=== PATIENT | female | born 1960 | race Caucasian/White ===

== ENCOUNTER 2019-09-12 19:31 | Emergency (ER) | payer OTHER ==
[~2019-09-12] VITALS: Ht 160 cm; Wt 92.5 kg
[2019-09-12 20:07] VITALS: BP 165/87
--- NOTE | 2019-09-12 20:08 | NUR ---
PT AAOX4. BIBFAMILY C/O L EYE REDDNESS AND PAIN X2-3 WEEKS. +BLURRY VISION. AWAITING MD FOR EVAL. NO ACUTE DISTRESS NOTED.
== END 2019-09-12 21:41 | disposition home or self-care (01) ==
LOC: ER 19:34
DX: H11.32 Conjunctival hemorrhage, left eye (principal)
CPT/HCPCS: 70450-TC

== ENCOUNTER 2021-03-05 21:13 | Emergency (ER) | payer MEDICAID, OTHER ==
[~2021-03-05] VITALS: Ht 162.6 cm; Wt 90.7 kg
--- NOTE | 2021-03-05 21:16 | NUR ---
PT BIBDAUGHTER C/O CHRONIC BACK PAIN WITH LEFT LEG NUMBNESS AND PAIN SINCE 1800 TODAY. PER DAUGHTER, PT CAN USUALLY WALK, BUT THE PAIN WAS SO INTENSE THAT SHE CANT WALK TODAY. PT ATTACHED TO MONITOR AND POX. PT GIVEN BLANKET AND CALL LIGHT WITHIN REACH
[2021-03-05] MEDS ORDERED: PRED50TA PO (22:16)
[2021-03-05] MEDS ORDERED: CYCL15CA23 PO (22:16)
[2021-03-05] MEDS: DEXAMETHASONE SOD PHOSPHATE 4 MG/ML VIAL IM ONE (22:20)
[2021-03-05] MEDS: CARISOPRODOL 350 MG TABLET PO ONE (22:20)
[2021-03-05] MEDS ORDERED: DEXAMETHASONE SOD PHOSPHATE 10 MG/ML VIAL ONE (22:20)
[2021-03-05] MEDS: CARISOPRODOL 350 MG TABLET ONE (22:35)
[2021-03-05 22:51] VITALS: BP 165/75
== END 2021-03-05 22:30 | disposition home or self-care (01) ==
LOC: ER 21:13
DX: M54.42 Lumbago with sciatica, left side (principal); G89.29 Other chronic pain; Z79.899 Other long term (current) drug therapy
CPT/HCPCS: 96372; 99283; J1100

== ENCOUNTER 2021-07-15 21:32 | Inpatient (IN) | payer OTHER ==
[~2021-07-15] VITALS: Ht 154.9 cm; Wt 87.3 kg
--- NOTE | 2021-07-15 20:15 | NUR ---
RN REPORT: RECEIVED REPORT FROM PARTS AND SERVICE MANAGER TIFFANIE CONRAD RN WITH [facility] . PATIENT PRESENTED TO HOSPITAL WITH DAUGHTER (ISABEL) C/O SOB AND CHEST PAIN THAT'S PERSISTED SINCE LAST WEDNESDAY AND HAS PROGRESSED TO RADIATING THROUGH THE NECK AND SHOULDERS. PATIENT WAS RECENTLY D/C'D FROM [facility] AFTER 2 WEEKS HOSPITALIZATION R/T BLE PAIN AND EDEMA AND WAS PLACED ON DIURETICS. PRESENTATION CURRENT PRESENTATION AT ER: ALERT AND ORIENTED X4; NEPALI SPEAKING PREDOMINANTLY, BUT UNDERSTANDS AND CAN SPEAK SOME [place]. DAUGHTER WITH PATIENT. PATIENT IS FULL CODE AND REFUSES ANY VACCINATIONS (FLU/PNA/COVID). ON 2L O2 VIA N/C FOR COMFORT SPO2 WNL TO RA. TELEMETRY READING SINUS EYAL AND SINUS RHYTHM. ABLE TO AMBULATE TOUCHING ASSIST. VOIDS TO BSC. NO SKIN ISSUES PRESENT. CARDIAC DIET. L HAND SL #20. CXR NEGATIVE FOR PULMONARY EDEMA/ CARDIAC ISSUES. PLAN IS FOR PATIENT TO TRANSFER TO [facility] FOR CARDIAC CATHETERIZATION PER DR. YIN. EXPLAINED PROCEDURE TO PATIENT AND FAMILY. FAMILY AWARE OF RATIONALE FOR PROCEDURE, BENEFITS, RISKS, ASE AND PRE-PROCEDURE PREPARATION. PATIENT TO BE NPO AFTER MIDNIGHT. PROCEDURE SLATED FOR 1300 12/8. TROPONIN LEVELS: 13.712, 14.855; LAST TROPONIN @ 1500 8.958. PATIENT ALLERGIC TO MORPHINE. RELEVANT HX FOLLOWS: HTN, OBESITY, HYPERLIPIDEMIA, CAD, BLE EDEMA.
[~2021-07-15 21:32] MED LIST: CYCL15CA23 PO; PRED50TA PO
--- NOTE | 2021-07-15 21:45 | NUR ---
TELEMTRY GLASS FURNACE OPERATOR NOTES: PATIENT ARRIVED TO UNIT ESCORTED BY EMT (X2) TRANSPORT VIA [facility]. PATIENT'S DAUGHTER ISABEL ALSO WITH PATIENT. PATIENT A&O X4 COMMUNICATIVE, COOPERATIVE AND CALM. PATIENT 1 PERSON ASSIST UP FROM GURNEY TO BED. PATIENT ORIENTED TO ROOM, CALL LIGHT, NURSING AND ANCILLARY STAFF. VS TAKEN AND PATIENT IN NAD AT THIS TIME. PATIENT AND DAUGHTER CONFIRMS MD EXPLAINED THE CARDIAC CATHETERIZATION PROCEDURE AND DENY HAVING ANY QUESTIONS. CONSENTS FOR PROCEDURE, ANESTHESIA, BLOOD TRANSFUSION EXPLAINED, READ OVER WITH DAUGHTER. BOTH DAUGHTER AND PATIENT VERBALIZE UNDERSTANDING AND CONSENTS SIGNED BY PATIENT. VSS. PATIENT IN NAD. NO CHANGE FROM PREVIOUS NOTATION (REPORT). TELEMETRY READING SR.
[2021-07-15 22:00] VITALS: BP 135/69
[2021-07-15] MEDS ORDERED: ONDANSETRON HCL/PF 4 MG/2 ML VIAL IVP PRN (22:30)
[2021-07-15] MEDS ORDERED: ZOLPIDEM TARTRATE 5 MG TABLET PO PRN (22:30)
[2021-07-15] MEDS ORDERED: Z GUARD REMEDY 2 OZ OINT TP PRN (22:30)
[2021-07-15] MEDS ORDERED: MAG HYDROX/AL HYDROX/SIMETH 30 ML UDC PO PRN (22:30)
[2021-07-15] MEDS ORDERED: MAGNESIUM HYDROXIDE 30 ML UDC PO PRN (22:30)
--- NOTE | 2021-07-15 22:30 | NUR ---
director of testing notes Snack is given to Pt before midnight.
[2021-07-15] MEDS: IV NS 0.9% 1,000 ML IV PRN (22:33)
[2021-07-15] MEDS: ACETAMINOPHEN 325 MG TABLET PO PRN (22:44)
--- NOTE | 2021-07-15 22:44 | NUR ---
fruit harvester machine operator notes Pt's complaining of headache and requesting meds. Administered tylenol 325mg/ 2tabs/po as ordered for headache. safety precautions is maintained. Will continue to monitor.
[2021-07-15 22:49] VITALS: BP 135/69
--- NOTE | 2021-07-15 23:00 | NUR ---
clinical training coordinator notes Received a phone call from lab for troponin [phone]. MD is informed and aware, Pt received lovenox at [facility] and informed MD that Pt's going for yard laborer tomorrow. No new orders received. Will continue to monitor.
[2021-07-16] VITALS (11 sets, daily range): BP systolic 120–141; BP diastolic 56–87
--- NOTE | 2021-07-16 06:11 | NUR ---
TRANSPORTER DRIVER CLOSING NOTES: PATIENT LYING IN BED, EYES CLOTHES. RESPIRATORY RATE EVEN AND UNLABORED. EASILY AROUSED TO LIGHT TOUCH. NAD AND VSS. TELE READING SR. IV INFUSING WITHOUT COMPLICATION. NO S/SX OF COMPROMISED TISSUE TO OR SURROUNDING IV INSERTION SITE. PATIENT SCHEDULED FOR CARDIAC CATHETERIZATION AT [address] YIN. CONSENTS FOR PROCEDURE, ANESTHESIA BLOOD TRANSFUSION SIGNED.
[2021-07-16 06:21] LABS: BASOPHILS % (AUTO) 0.2 % (0.0-2.0); EOSINOPHILS % (AUTO) 1.1 % (0.0-6.0); HEMATOCRIT 39 % (33-45); LYMPHOCYTES % (AUTO) 34.2 % (20.0-44.0); MEAN CORPUSCULAR HGB CONC 34 g/dl (31.0-36.0); MEAN CORPUSCULAR VOLUME 91 fL (82-100); MONOCYTES # (AUTO) 0.9 K/uL (0.1-1.30); MONOCYTES % (AUTO) 9.7 % (2.0-12.0); NEUTROPHILS # (AUTO) 4.8 K/uL (1.8-8.9); NEUTROPHILS % (AUTO) 54.8 % (43.0-81.0); PLATELET COUNT (AUTO) 220 K/uL (150-450); RED BLOOD CELL COUNT(AUTO) 4.26 MIL/uL (4.0-5.2); WHITE BLOOD COUNT (AUTO) 8.8 K/uL (4.3-11.0)
[2021-07-16 06:54] LABS: ALBUMIN 3.1 g/dL (3.4-5.0); BILIRUBIN,DIRECT 0.1 mg/dL (0.0-0.2); BILIRUBIN,TOTAL 0.5 mg/dL (0.2-1.0); CALCIUM, SERUM 8.4 mg/dL (8.5-10.1); CREATININE 0.6 mg/dL (0.6-1.3); MAGNESIUM 2.1 mg/dL (1.8-2.4); POTASSIUM 3.9 mmol/L (3.5-5.1); TOTAL PROTEIN, SERUM 6.9 g/dL (6.4-8.2)
--- NOTE | 2021-07-16 07:30 | NUR ---
YARN WORKER OPENING NOTES: PATIENT SLEEPING IN BED. A/OX4 ENGLISH SPEAKING. PATIENT STABLE ON ROOM AIR, RESPIRATORY RATE EVEN AND UNLABORED. PATIENT WITH EXTERNAL ROTARY DRILLER PROSPECTING, TELE READING SR.@67, NO CARDIAC DISTRESS NOTED. IV ACCESS AT LEFT HAND # 22 G, RUNNING NS@ 75ML/HR, INTACT AND PATENT.SAFETY MEASURES PROVIDED; LOW BED, BED LOCKED, BED ALARM ON, SIDE RAILS X2 AND CALL LIGHT WITHIN REACH. WILL CONTINUE TO PLAN OF CARE.
--- NOTE | 2021-07-16 08:30 | NUR ---
RN NOTE RECEIVED CALL FROM LOGGING ENGINEER [facility] REGARDING CRITICAL HIGH TROPONIN LEVEL 4.94 FROM 5.78. MD MADE AWARE. PT FOR CARDIAC CATHETERIZATION TODAY. PT WITH NO C/O CARDIAC DISTRESS AT THIS TIME. WILL CONTINUE TO MONITOR.
[2021-07-16] MEDS: ASPIRIN 81 MG TAB.CHEW PO SCH (08:32)
[2021-07-16] MEDS: IV NS 0.9% 1,000 ML IV PRN (12:44)
[2021-07-16] MEDS ORDERED: IODIXANOL 150 ML IV ONE (12:45)
[2021-07-16] MEDS ORDERED: LIDOCAINE HCL/MPF 1% 30 ML VIAL IJ ONE (12:45)
--- NOTE | 2021-07-16 12:45 | NUR ---
INSERTED NEW IV ACCESS AT LFA #20, BLOOD RETURNED AND FLUSHED WELL. NO SIGNS OF SWELLING, SKIN COLOR CHANGE NOTED AT THIS TIME. PATIENT TOLERATED WELL.
[2021-07-16] MEDS ORDERED: FENO134C PO (12:46)
[2021-07-16] MEDS ORDERED: LOSA100T31 PO (12:46)
[2021-07-16] MEDS ORDERED: OMEP20CA15 PO (12:46)
[2021-07-16] MEDS ORDERED: HYDR25TA4 PO (12:46)
[2021-07-16] MEDS ORDERED: NITROGLYCERIN IN 5 % DEXTROSE 250 ML IV ONE (12:46)
[2021-07-16] MEDS ORDERED: ESCI10TA PO (12:46)
[2021-07-16] MEDS ORDERED: METO-358 PO (12:46)
[2021-07-16] MEDS ORDERED: SERT50TA12 PO (12:46)
[2021-07-16] MEDS ORDERED: GABA-536 PO (12:46)
[2021-07-16] MEDS ORDERED: DICL50TA9 PO (12:46)
[2021-07-16] MEDS ORDERED: HYDR-4077 PO (12:46)
[2021-07-16] MEDS ORDERED: ERGO500093 PO (12:46)
--- NOTE | 2021-07-16 13:10 | NUR ---
RN NOTES PT PICKED-UP VIA HER BED TO CARDIAC LAB FOR CARDIAC CATHETERIZATION.
[2021-07-16] MEDS ORDERED: FENTANYL PF 100MCG/2ML AMPUL ONE (13:23)
[2021-07-16] MEDS ORDERED: MIDAZOLAM HCL 2 MG/2ML VIAL ONE (13:23)
[2021-07-16] MEDS ORDERED: IODIXANOL 320MG/ML 50 ML IV ONE (13:49)
[2021-07-16] MEDS ORDERED: HEPARIN SODIUM, PORCINE 1,000 UNIT/ML VIAL ONE (13:51)
[2021-07-16] MEDS ORDERED: HEPARIN SODIUM, PORCINE 5000 UNITS/1 ML VIAL ONE (13:51)
[2021-07-16] MEDS ORDERED: CLOPIDOGREL BISULFATE 300 MG TABLET ONE (14:08)
--- NOTE | 2021-07-16 14:35 | NUR ---
TRANSFER NOTE PT BROUGHT IN BY OR TEAM ON HOSPITAL BED, PT IS A&OX4, BREATHING EVEN AND UNLABORED ON RA. PT CURRENTLY ENDORSES NO PAIN. R RADIAL DRESSING IS CLEAN, NO BLOOD OBSERVED. R INGUINAL DRESSING IS CLEAN, NO BLOOD OBSERVED. PT KEPT SUPINE PER MD ORDER. PT PLACED ON MONITOR, ORDERS EXECUTED. RN WILL MONITOR AND TREAT THROUGHOUT SHIFT.
[2021-07-16] MEDS: METOPROLOL TARTRATE 25 MG TABLET PO SCH ×2 (15:00→21:38)
--- NOTE | 2021-07-16 15:00 | NUR ---
NURSES NOTE LOPRESSOR HELD, PT BP IS 127/67, HR 66, PT NEEDS TO REMAIN SUPINE AND UNSAFE TO RAISE HEAD OF BED TO TAKE PO RX
--- NOTE | 2021-07-16 16:25 | NUR ---
RN NOTE R INGINUAL AND R RADIAL DRESSING IS CLEAN AND NO BLOOD OBSERVED
--- NOTE | 2021-07-16 16:50 | NUR ---
MD COMMUNICATION RN SPOKE TO MD ABOUT DIET, MD GAVE ORDERS: REGULAR DIET. RN READ BACK ORDER TO CONFIRM AND WILL ENTER DIRECTED.
[2021-07-16] MEDS: ACETAMINOPHEN 325 MG TABLET PO PRN (18:30)
--- NOTE | 2021-07-16 19:17 | NUR ---
RN NOTES PT FOUND SEMI POWELL'S POSITION, HOB 30 DEGREES PER MD ORDER, NO S/S OF DISTRESS, PT ENDORSES NO PAIN AND BREATHING IS EVEN AND UNLABORED ON RA. DRESSING CONTINUE TO BE CLEAN AND FREE OF BLOOD. SBAR AND REPORT GIVEN TO CAR PAINTER RN. ALL QUESTIONS ANSWERED. SAFETY MEASURES IN PLACE, BED LOCKED AND IN LOWEST POSITION, SIDE RAILS UPX2, CALL LIGHT WITHIN REACH, PT INSTRUCTED TO CALL FOR ASSISTANCE. PT ENDORSED IN STABLE CONDITION FOR FLORECITA.
--- NOTE | 2021-07-16 20:00 | NUR ---
RN OPENING NOTES: RECEIVED PATIENT IN BED. A/OX4 URDU SPEAKING S/P RIGHT COMMMON FEMORAL ARTERY BALLOON ANGIOPLASTY NO BLEEDING NOTED ON THE SITE . PATIENT STABLE ON ROOM AIR, RESPIRATORY RATE EVEN AND UNLABORED. PATIENT ON TELE RADIOGRAPHER ANGIOGRAM, TELE READING SR.@79, NO CARDIAC DISTRESS NOTED. IV ACCESS AT LEFT HAND # 22 G, RUNNING NS@ 75ML/HR, INTACT AND PATENT.SAFETY MEASURES PROVIDED; LOW BED, BED LOCKED, BED ALARM ON, SIDE RAILS X2 AND CALL LIGHT WITHIN REACH. WILL CONTINUE TO PLAN OF CARE.FAMILY AT BEDSIDE UPDATED WITH PTS CURRENT CONDITION ,WILL CONTINUE TO MONITOR PTS,V/S STABLE AFEBRILE.
[2021-07-16] MEDS ORDERED: ATORVASTATIN 40 MG TABLET PO SCH (22:00)
--- NOTE | 2021-07-16 22:00 | NUR ---
ALL DUE MEDS GIVEN AT THIS TIME WITH NO ASE NOTED ,PTS IN COMFORTABLE POSITION NO SOB NO DISTRESS NOTED.NO C/O PAIN NOTED. WILL CONTINUE TO MONITOR PTS
[2021-07-17] VITALS (13 sets, daily range): BP systolic 101–129; BP diastolic 47–76
[2021-07-17 04:56] LABS: BASOPHILS % (AUTO) 0.2 % (0.0-2.0); EOSINOPHILS % (AUTO) 0.8 % (0.0-6.0); HEMATOCRIT 37 % (33-45); HEMOGLOBIN 12.5 g/dL (11.5-14.8); LYMPHOCYTES # (AUTO) 2.1 K/uL (0.8-4.8); MEAN CORPUSCULAR HGB CONC 34 g/dl (31.0-36.0); MEAN CORPUSCULAR VOLUME 91 fL (82-100); MONOCYTES # (AUTO) 0.8 K/uL (0.1-1.30); MONOCYTES % (AUTO) 8.3 % (2.0-12.0); NEUTROPHILS # (AUTO) 6.1 K/uL (1.8-8.9); NEUTROPHILS % (AUTO) 67.7 % (43.0-81.0); PLATELET COUNT (AUTO) 243 K/uL (150-450); RED BLOOD CELL COUNT(AUTO) 4.06 MIL/uL (4.0-5.2); WHITE BLOOD COUNT (AUTO) 9.1 K/uL (4.3-11.0)
[2021-07-17 05:19] LABS: BILIRUBIN,TOTAL 0.6 mg/dL (0.2-1.0); CALCIUM, SERUM 8.2 mg/dL (8.5-10.1); CREATININE 0.6 mg/dL (0.6-1.3); PHOSPHORUS 3.6 mg/dL (2.5-4.9); POTASSIUM 3.9 mmol/L (3.5-5.1); TOTAL PROTEIN, SERUM 6.9 g/dL (6.4-8.2)
--- NOTE | 2021-07-17 06:58 | NUR ---
staff nurse icu resource team note Reident remain in bed a/0x4 no sob no distress noted no c/o of pain .. right femoral site noted with no bleeding all needs attended too call light within reach, v/s stable afebrile , will endorse to rn day shift for continuity of care . possible d/c home today.ivfluids completed pts able to drink fluids well.
[2021-07-17] MEDS: ASPIRIN 81 MG TAB.CHEW PO SCH (08:57)
[2021-07-17] MEDS: METOPROLOL TARTRATE 25 MG TABLET PO SCH (08:57)
[2021-07-17] MEDS ORDERED: CLOPIDOGREL BISULFATE 75 MG TABLET PO SCH (09:00)
--- NOTE | 2021-07-17 12:00 | NUR ---
RN NOTE PT DISCHARGED FROM ICU TO HOME. PRESCRIPTION SENT AND EXPLAINED TO PT. EXIT CARE SIGNED. PT D/C WITH WHEELCHAIR. IV'S REMOVED.
== END 2021-07-17 12:45 | disposition home or self-care (01) | DRG 174 ==
LOC: TELE 21:32 → ICU 07-16 14:41
PROVIDERS: ADMIT Nurse Practitioner Acute Care
PROC: 02C03ZZ Extirpation of Matter from Coronary Artery, One Artery, Percutaneous Approach (ICD-10-PCS; principal; 2021-07-16)
PROC: 02703ZZ Dilation of Coronary Artery, One Artery, Percutaneous Approach (ICD-10-PCS; 2021-07-16)
PROC: 4A023N7 Measurement of Cardiac Sampling and Pressure, Left Heart, Percutaneous Approach (ICD-10-PCS; 2021-07-16)
PROC: B211YZZ Fluoroscopy of Multiple Coronary Arteries using Other Contrast (ICD-10-PCS; 2021-07-16)
DX: I21.4 Non-ST elevation (NSTEMI) myocardial infarction (principal); E66.9 Obesity, unspecified; I25.10 Atherosclerotic heart disease of native coronary artery without angina pectoris; E78.5 Hyperlipidemia, unspecified; F32.A Depression, unspecified; I10 Essential (primary) hypertension; I25.2 Old myocardial infarction; M19.90 Unspecified osteoarthritis, unspecified site; Z68.36 Body mass index [BMI] 36.0-36.9, adult
CPT/HCPCS: 36415; 80048-TC; 80053-TC; 80076-TC; 83735-TC; 84100-TC; 84484-TC; 85025-TC; 85347; 85610-TC; 85730-TC; 86850-TC; 87081-TC; 92973-TC; C1725; C1757; C1769; C1887; C1894; G0378; G0500; J1644; J2250; J3010; J3490; J7030; Q9967

== ENCOUNTER 2021-08-22 20:18 | Emergency (ER) | payer OTHER ==
[~2021-08-22] VITALS: Ht 162.6 cm; Wt 83.9 kg
[~2021-08-22 20:18] MED LIST changes: +DICL50TA9 PO; +ERGO500093 PO; +ESCI10TA PO; +FENO134C PO; +GABA-536 PO; +LOSA100T31 PO; +OMEP20CA15 PO; -PRED50TA PO; +SERT50TA12 PO
--- NOTE | 2021-08-22 21:10 | NUR ---
PT BIBDAUGHTER C/O LEFT EYE ITCHINESS, SWELLING AND YELLOW [id number]. PATIENT ALERT AND ORIENTED X3. AMBULATORY WITH NON LABORED BREATHING. PATIENT VISUAL ACUITY WAS DONE . PLACED IN BED 10 NO C/O AT THIS TIME
[2021-08-22] MEDS ORDERED: SULF15DR6 LEFTEYE (22:25)
[2021-08-22 22:36] VITALS: BP 177/104
--- NOTE | 2021-08-22 22:36 | NUR ---
DISCHARGE INSTRUCTIONS GIVEN TO PT. PT LEFT IN STABLE CONDITION
== END 2021-08-22 22:37 | disposition home or self-care (01) ==
LOC: ER 20:20
DX: H00.016 Hordeolum externum left eye, unspecified eyelid (principal); I10 Essential (primary) hypertension; Z88.6 Allergy status to analgesic agent; Z79.899 Other long term (current) drug therapy

== ENCOUNTER 2021-10-03 19:55 | Inpatient (IN) | payer MEDICAID, OTHER ==
[~2021-10-03] VITALS: Ht 157.5 cm; Wt 90.3 kg
[~2021-10-03 19:55] MED LIST changes: +SULF15DR6 LEFTEYE
--- NOTE | 2021-10-03 20:05 | NUR ---
TO ER BED 2. BIBDAUGHTER C/O MID STERNAL CHEST PAIN RADIATING TO NECK X 2 DAYS WORST TODAY. HAS HX OF FL. DENIES NAUSEA AND VOMITING. PT CHANGED INTO GOWN AND CONNECTED TO MONITOR. NOT IN RESPIRATORY DISTRESS. AWAITING MD ELKINS
--- NOTE | 2021-10-03 20:20 | NUR ---
RICKSHAW DRIVER AT PT'S BEDSIDE
--- NOTE | 2021-10-03 20:26 | NUR ---
STORE LEADER AT PT'S BEDSIDE
--- NOTE | 2021-10-03 20:27 | NUR ---
IV LINE ESTABLISHED. LFA 20G
--- NOTE | 2021-10-03 20:30 | NUR ---
COVID ANTIGEN SWAB COLLECTED AND SENT TO LAB
[2021-10-03 20:38] LABS: BASOPHILS % (AUTO) 0.3 % (0.0-2.0); EOSINOPHILS % (AUTO) 1.5 % (0.0-6.0); HEMATOCRIT 39 % (33-45); HEMOGLOBIN 13.2 g/dL (11.5-14.8); LYMPHOCYTES # (AUTO) 2.4 K/uL (0.8-4.8); LYMPHOCYTES % (AUTO) 27.5 % (20.0-44.0); MEAN CORPUSCULAR HGB CONC 34 g/dl (31.0-36.0); MEAN CORPUSCULAR VOLUME 89 fL (82-100); MONOCYTES # (AUTO) 0.6 K/uL (0.1-1.30); MONOCYTES % (AUTO) 6.5 % (2.0-12.0); NEUTROPHILS # (AUTO) 5.6 K/uL (1.8-8.9); NEUTROPHILS % (AUTO) 64.2 % (43.0-81.0); PLATELET COUNT (AUTO) 246 K/uL (150-450); WHITE BLOOD COUNT (AUTO) 8.7 K/uL (4.3-11.0)
[2021-10-03 20:49] LABS: CALCIUM, SERUM 8.8 mg/dL (8.5-10.1); CARBON DIOXIDE 28 mmol/L (21-32); CHLORIDE 103 mmol/L (98-107); CREATININE 0.7 mg/dL (0.6-1.3); GLUCOSE 117 mg/dL (74-106); POTASSIUM 3.9 mmol/L (3.5-5.1); SODIUM SERUM 137 mmol/L (136-145); UREA NITROGEN, BLOOD 25 mg/dL (7-18)
[2021-10-03 20:54] LABS: ALANINE AMINOTRANSFERASE 22 U/L (12-78); ALBUMIN 3.7 g/dL (3.4-5.0); ALKALINE PHOSPHATASE 120 U/L (46-116); ASPARTATE AMINOTRANSFERASE 17 U/L (15-37); BILIRUBIN,DIRECT 0.1 mg/dL (0.0-0.2); BILIRUBIN,TOTAL 0.2 mg/dL (0.2-1.0); TOTAL PROTEIN, SERUM 7.3 g/dL (6.4-8.2)
[2021-10-03] MEDS ORDERED: NITROGLYCERIN PACKET 1 GM PACKET ONE (21:20)
--- NOTE | 2021-10-03 21:20 | NUR ---
KARISSA MULLEN, DNP AT BEDSIDE
[2021-10-03] MEDS ORDERED: ASPIRIN 325 MG TABLET ONE (21:21)
[2021-10-03] MEDS ORDERED: ASPIRIN 325 MG TABLET PO ONE (21:30)
[2021-10-03] MEDS ORDERED: NITROGLYCERIN PACKET 1 GM PACKET TD ONE (21:30)
[2021-10-03] MEDS ORDERED: ALPRAZOLAM 0.5 MG TABLET PO PRN (22:00)
[2021-10-03] MEDS ORDERED: MAGNESIUM HYDROXIDE 30 ML UDC PO PRN (22:00)
[2021-10-03] MEDS ORDERED: Z GUARD REMEDY 4 OZ OINT TP PRN (22:00)
[2021-10-03] MEDS ORDERED: ONDANSETRON HCL/PF 4 MG/2 ML VIAL IVP PRN (22:00)
[2021-10-03] MEDS ORDERED: MAG HYDROX/AL HYDROX/SIMETH 30 ML UDC PO PRN (22:00)
[2021-10-03] MEDS ORDERED: NITROGLYCERIN 0.4 MG/TAB BOTTLE SL PRN (22:00)
--- NOTE | 2021-10-03 22:17 | NUR ---
REPORT GIVEN TO SHARRON AGUIAR FOR FLORECITA
--- NOTE | 2021-10-03 23:09 | NUR ---
PT TRANSFERRED TO 3W VIA ACLS PROTOCOL. ALL BELONGINGS WITH PT. PT TOLERATED TRANSFER WELL.
--- NOTE | 2021-10-03 23:30 | NUR ---
ADMITTED PATIENT FROM ED DUE TO CHEST PAIN RADIATING TO NECK X3 DAYS. FROM HOME, ALERT/ORIENTED X4, STABLE ON ROOM AIR, AFEBRILE, COVID (-), NO COMPLAIN OF CHEST PAIN ON ADMISSION IN UNIT. BP ELEVATED IN ED WITH SBP OF 200S, WAS GIVEN NITRO PATCH, BP IMPROVED WITH SBP OF 129. COMPLAINING OF BACK PAIN, ASSISTED TO TOILET, UNSTEADY GAIT, CONTINENT OF BOWEL AND BLADDER, FOR CARDIAC CONSULT WITH DR. RICKETTS
[2021-10-03 23:38] VITALS: BP 129/70
[2021-10-03] MEDS: ENOXAPARIN SODIUM 40 MG/0.4 ML DISP.SYRIN SQ SCH (23:41)
[2021-10-03] MEDS: METOPROLOL TARTRATE 25 MG TABLET PO SCH (23:41)
[2021-10-03] MEDS: ACETAMINOPHEN 325 MG TABLET PO PRN (23:41)
[2021-10-04 06:52] LABS: BASOPHILS % (AUTO) 0.3 % (0.0-2.0); EOSINOPHILS % (AUTO) 2.8 % (0.0-6.0); HEMATOCRIT 37 % (33-45); HEMOGLOBIN 12.6 g/dL (11.5-14.8); LYMPHOCYTES # (AUTO) 2.9 K/uL (0.8-4.8); LYMPHOCYTES % (AUTO) 44.6 % (20.0-44.0); MEAN CORPUSCULAR HGB CONC 34 g/dl (31.0-36.0); MEAN CORPUSCULAR VOLUME 89 fL (82-100); MONOCYTES # (AUTO) 0.4 K/uL (0.1-1.30); NEUTROPHILS % (AUTO) 46.3 % (43.0-81.0); PLATELET COUNT (AUTO) 241 K/uL (150-450); WHITE BLOOD COUNT (AUTO) 6.5 K/uL (4.3-11.0)
--- NOTE | 2021-10-04 07:05 | NUR ---
ALERT AND ORIENTED X4, STABLE ON ROOM AIR, NO COMPLAIN OF CHEST PAIN, SINUS EYAL WHEN ASLEEP, HR IN MID 50S, CHRONIC BACK PAIN, ALLERGY TO MORPHINE, GIVEN TYLENOL, ASSISTED TO TOILET, SKIN INTACT, BP STABLE, AFEBRILE. CXR NEGATIVE, CT HEAD NO HEMORRHAGE, NO INFARCT, CHRONIC MAXILLARY SINUSITIS, CARDIAC CONSULT WITH DR. RICKETTS, SERIAL TROPONIN AND R/O REOCCLUSION OF SMALL VESSEL, HX OF THROMBECTOMY 07/2021
[2021-10-04 07:14] LABS: CREATININE 0.5 mg/dL (0.6-1.3); PHOSPHORUS 4.4 mg/dL (2.5-4.9); POTASSIUM 3.6 mmol/L (3.5-5.1)
[2021-10-04] MEDS ORDERED: CLOP75TA15 PO (07:27)
[2021-10-04] MEDS ORDERED: ATOR40TA PO (07:27)
[2021-10-04] MEDS ORDERED: ASPI-1420 PO (07:27)
--- NOTE | 2021-10-04 07:30 | NUR ---
RN OPENING NOTES PATIENT AWAKE IN BED RESTING, A/O X4. NO S/S OF PAIN NOTED AT THIS TIME. PATIENT ON ROOM AIR, NO DISTRESS OR SHORTNESS OF BREATH. IV ACCESS LAC #20G INTACT, PATENT AND FLUSHING WELL. PATIENT HAS AN EXTERNAL PSYCH THERAPIST CURRENT READING OF S.B. AND HR OF 51. FALL AND SAFETY MEASURES IN PLACE, BED ALARM ON, BED IN LOW AND LOCK POSITION, CALL LIGHT AND TABLE WITHIN EASY REACH, SIDE RAILS UP X2. WILL CONTINUE TO MONITOR.
[2021-10-04 08:00] VITALS: BP 126/72
[2021-10-04] MEDS: LOSARTAN POTASSIUM 25 MG TABLET PO SCH (08:20)
[2021-10-04] MEDS: PANTOPRAZOLE 40 MG TABLET.DR PO SCH (08:21)
[2021-10-04] MEDS: ASPIRIN EC 81 MG TABLET.DR PO SCH (08:21)
[2021-10-04] MEDS: CLOPIDOGREL BISULFATE 75 MG TABLET PO SCH (08:21)
[2021-10-04] MEDS: METOPROLOL TARTRATE 25 MG TABLET PO SCH ×2 (08:21→20:44)
[2021-10-04 12:00] VITALS: BP 161/72
[2021-10-04 12:51] LABS: THYROID STIMULATING HORMONE 4.618 uIU/mL (0.358-3.74)
[2021-10-04] MEDS: ACETAMINOPHEN 325 MG TABLET PO PRN ×2 (13:13→20:46)
[2021-10-04] MEDS ORDERED: CT SWABBABLE VALVE TRANS SET 1 EA INFUS.SET MC ONE (13:23)
[2021-10-04] MEDS ORDERED: IV NS 0.9% 250 ML IV ONE (13:23)
[2021-10-04] MEDS ORDERED: IOHEXOL-350 100 ML VIAL IV ONE (13:23)
[2021-10-04] MEDS ORDERED: METOPROLOL TARTRATE INJ 5 MG/5 ML AMPUL ONE (13:46)
--- NOTE | 2021-10-04 13:57 | NUR ---
RN NOTES PT RECEIVED IN RADIOLOGY FOR CTA, A/Ox4, KATELYN ANY DISTRESS , CONTINUE TO MONITOR VSS DURING CTA .
--- NOTE | 2021-10-04 13:58 | NUR ---
RN NOTES PT IS A/Ox4, 5 MG OF METOPROLOL IV GIVEN DURING CTA, PT TOLERATED WELL, NO DISTRESS NOTED , VSS STABLE.
--- NOTE | 2021-10-04 14:04 | NUR ---
RN NOTES VSS STABLE , PT GOING BACK TO THE FLOOR FROM RADIOLOGY IN STABLE CONDITION, PT DENIED ANY DISTRESS.
[2021-10-04 16:00] VITALS: BP_SYST 123; BP_SYST 126; BP_DIAS 56; BP_DIAS 67
--- NOTE | 2021-10-04 18:41 | NUR ---
RN CLOSING NOTES PATIENT AWAKE IN BED RESTING, A/O X4. NO S/S OF PAIN NOTED AT THIS TIME. PATIENT ON ROOM AIR, NO DISTRESS OR SHORTNESS OF BREATH. IV ACCESS LAC #20G AND L HAND #20G INTACT, PATENT AND FLUSHING WELL. PATIENT HAS AN EXTERNAL LAWYER CRIMINAL CURRENT READING OF S.B. AND HR OF 60. FALL AND SAFETY MEASURES IN PLACE, BED ALARM ON, BED IN LOW AND LOCK POSITION, CALL LIGHT AND TABLE WITHIN EASY REACH, SIDE RAILS UP X2. WILL ENDORSE TO DATA EXAMINATION CLERK.
--- NOTE | 2021-10-04 19:10 | NUR ---
RN NOTES: RECEIEVED AWAKE ON BED, DAUGHTER PRESENT AT BED SIDE, ON DRAY DRIVER TELE-SB RATE-56, SHE UNDERGONE ct ANGIO THIS MORNING, A/OX4, ORIENTED TO UNIT AND STAFF, ASSISTED TO THE BATHROOM AFTER ENDORSEMENT, AMBULATE WELL, SHE WAS ABLE TO PEE WITHOUT ANY PAIN OR DISCOMFORT, LH-G#22 INTACT, STILL AWAITING FOR RESULT OF ECHO AND CT ANGIO. -INSTRUCT AND ENCOURAGE TO DRINK FLUIDS TOLERATED FOR ELECTROLYTES REPLACEMENT, ABLE TO FOLLOW INSTRUCTION AND COMPREHEND WELL.
--- NOTE | 2021-10-04 19:54 | NUR ---
RN NOTES: -CALLS AND NEEDS ATTENDED, ASSISTED TO BATHROOM.
[2021-10-04 20:00] VITALS: BP 126/69
[2021-10-04] MEDS: ENOXAPARIN SODIUM 40 MG/0.4 ML DISP.SYRIN SQ SCH (20:45)
--- NOTE | 2021-10-04 20:46 | NUR ---
RN NOTES: PATIENT REFUSED TO TAKE HER BETA MYLA, HER HR IS ONLY 54, SHE REQUEST FOR TYLENOL SHE HAS MILD HEADACHE, GIVEN, NON PHARMACOLOGIC INTERVENTION RENDERED, DIM LIT AND WARM BLANKET GIVEN.
[2021-10-05] VITALS: BP 131/59
[2021-10-05 04:00] VITALS: BP 131/70
--- NOTE | 2021-10-05 07:17 | NUR ---
RN NOTES: ASLEEP IN THE NIGHT, NO CHEST PAIN, SINUS BRADYCARDIA=54, KEPT MONITORED, CALLS AND NEEDS ATTENDED, NO LABS FOR TODAYS, ENDORSED FOR CONTINUITY OF CARE.
--- NOTE | 2021-10-05 07:29 | NUR ---
RN OPENING NOTES PATIENT AWAKE IN BED RESTING, A/O X4. NO S/S OF PAIN NOTED AT THIS TIME. PATIENT ON ROOM AIR, NO DISTRESS OR SHORTNESS OF BREATH. IV ACCESS L HAND #20G INTACT, PATENT AND FLUSHING WELL. PATIENT HAS AN EXTERNAL VENDING MACHINE HOST/HOSTESS CURRENT READING OF S.B. AND HR OF 56. FALL AND SAFETY MEASURES IN PLACE, BED ALARM ON, BED IN LOW AND LOCK POSITION, CALL LIGHT AND TABLE WITHIN EASY REACH, SIDE RAILS UP X2. WILL CONTINUE TO MONITOR.
[2021-10-05] MEDS: ASPIRIN EC 81 MG TABLET.DR PO SCH (08:29)
[2021-10-05] MEDS: PANTOPRAZOLE 40 MG TABLET.DR PO SCH (08:30)
[2021-10-05] MEDS: CLOPIDOGREL BISULFATE 75 MG TABLET PO SCH (08:30)
[2021-10-05 08:39] VITALS: BP 116/68
[2021-10-05] MEDS ORDERED: METO25TA20 PO (08:42)
[2021-10-05] MEDS: LOSARTAN POTASSIUM 25 MG TABLET PO SCH (09:47)
[2021-10-05] MEDS: METOPROLOL TARTRATE 25 MG TABLET PO SCH (09:47)
[2021-10-05 12:31] VITALS: BP 124/58
--- NOTE | 2021-10-05 14:38 | NUR ---
CENTRAL OFFICE OPERATOR NOTE PATIENT DISCHARGE IN STABLE MEDICAL CONDITION. A/O X4. V/S TAKEN, STABLE AND RECORDED. NO IV ACCESS. SKIN ASSESSMENT DONE, SKIN INTACT. NAME ARM BAND REMOVED. ALL BELONGINGS CHECKED AND SIGNED. HEALTH TEACHING AND DISCHARGE INSTRUCTIONS GIVEN TO PATIENT AND VERBALIZED UNDERSTANDING. PATIENT LEFT UNIT VIA WHEELCHAIR WITH NO SIGNS OF DISTRESS, ACCOMPANIED BY FITNESS FLOOR ATTENDANT TO THE LOBBY. PATIENT LEFT HOSPITAL WITH FAMILY. CHARGE NURSE AWARE OF DISCHARGED.
== END 2021-10-05 14:30 | disposition home or self-care (01) | DRG 243 ==
LOC: ER 19:56 → TELE 22:10
PROVIDERS: ADMIT Nurse Practitioner Acute Care; ATTEND Internal Medicine
DX: K21.9 Gastro-esophageal reflux disease without esophagitis (principal); G90.8 Other disorders of autonomic nervous system; Z68.36 Body mass index [BMI] 36.0-36.9, adult; E66.9 Obesity, unspecified; I25.10 Atherosclerotic heart disease of native coronary artery without angina pectoris; E78.5 Hyperlipidemia, unspecified; I10 Essential (primary) hypertension; I16.0 Hypertensive urgency; I25.2 Old myocardial infarction; Z98.61 Coronary angioplasty status; Z88.5 Allergy status to narcotic agent; Z79.899 Other long term (current) drug therapy; M19.90 Unspecified osteoarthritis, unspecified site; G47.33 Obstructive sleep apnea (adult) (pediatric); Z98.890 Other specified postprocedural states; J32.0 Chronic maxillary sinusitis
CPT/HCPCS: 36415; 70450-TC; 71045-TC; 75574; 80048-TC; 80076-TC; 83735-TC; 84100-TC; 84443-TC; 84484-TC; 85025-TC; 87081-TC; 93307-TC; C9803; G0378; J1650; J3490; J7050; Q9967

== ENCOUNTER 2021-11-01 20:22 | Emergency (ER) | payer MEDICAID ==
[~2021-11-01] VITALS: Ht 154.9 cm; Wt 90.7 kg
[~2021-11-01 20:22] MED LIST changes: +ASPI-1420 PO; +ATOR40TA PO; +CLOP75TA15 PO; -CYCL15CA23 PO; +METO25TA20 PO; -SULF15DR6 LEFTEYE
[2021-11-01] MEDS ORDERED: FLUORESCEIN SODIUM OPHTH 1 EA STRIP OP ONE (21:00)
[2021-11-01] MEDS ORDERED: TETRAcaine 5 ML BOTTLE EACHEYE ONE (21:00)
[2021-11-01] MEDS ORDERED: FLUORESCEIN SODIUM OPHTH 1 EA STRIP ONE (21:08)
--- NOTE | 2021-11-01 21:10 | NUR ---
BIBDAUGHTER C/O LEFT EYE PAIN AND REDNESS X1WK, USED EYE DROP BUT NO HELP. VISION IS 20/15 CORRECTED. PT AWAKE AND ALERT AND ALL V/S STABLE.
--- NOTE | 2021-11-01 21:20 | NUR ---
DR. AGA JORDAN AT PT'S BEDSIDE FOR EYE EXAM
[2021-11-01] MEDS ORDERED: ERYT3.5O9 EACHEYE (21:32)
--- NOTE | 2021-11-01 21:56 | NUR ---
Patient discharged to home in stable condition. Written and verbal after care instructions given. Patient verbalizes understanding of instruction. PT ambulatory with a steady gait
[2021-11-01 22:23] VITALS: BP 142/75
== END 2021-11-01 22:00 | disposition home or self-care (01) ==
LOC: ER 20:37
DX: H10.32 Unspecified acute conjunctivitis, left eye (principal); I10 Essential (primary) hypertension; I21.4 Non-ST elevation (NSTEMI) myocardial infarction; Z88.5 Allergy status to narcotic agent; Z79.82 Long term (current) use of aspirin; Z79.899 Other long term (current) drug therapy